=== PATIENT | male | born 2005 | race Caucasian/White ===

== ENCOUNTER 2024-07-02 10:32 | Outpatient (REF) | payer MEDICAID, SELFPAY ==
[2024-07-02 12:08] LABS: Cholesterol 100 mg/dL (<200); HDL Cholesterol 49 mg/dL (>40); LDL Cholesterol Calculated 35 mg/dL (<100); Triglycerides 83 mg/dL (<150)
[2024-07-02 12:13] LABS: TSH reflex Free T4 0.82 uIU/mL (0.32-4.0)
[2024-07-02 12:26] LABS: HIV AB/AG Nonreactive (Nonreactive); HIV Num 1 0.06 S/CO (0.00-0.99)
[2024-07-04 07:22] LABS: HCV Log PCR <1.18 NOT DETECTED Log IU/mL (NOT DETECTED); HepC Viral Load <15 NOT DETECTED IU/mL (NOT DETECTED)
== END 2024-07-02 10:33 | disposition home or self-care (01) ==
LOC: HO.HHCL 10:32
PROVIDERS: Visit Provider Nurse Practitioner Family
DX: Z00.00 Encounter for general adult medical examination without abnormal findings (principal); F41.1 Generalized anxiety disorder; E78.1 Pure hyperglyceridemia
CPT/HCPCS: 36415; 80061; 84443; 87389; 87522